=== PATIENT | male | born 1975 | race Caucasian/White ===

== ENCOUNTER 2025-09-25 20:07 | Emergency (ER) | payer BC, SELFPAY ==
[2025-09-25 20:09] VITALS: BP 145/90
[2025-09-25 20:44] VITALS: BP 142/90
[2025-09-25 20:45] VITALS: BMI 26.5
[2025-09-25 20:48] LABS: Hematocrit 40.5 % (39.0-52.0); Hemoglobin 13.7 g/dL (13.0-18.0); Mean Corp Hgb Conc. 33.8 g/dL (33.0-37.0); Mean Corpuscular Volume 83.3 fL (80.0-94.0); Nucleated Red Blood Cells % 0 % (-); Platelet Count 251 10^3/uL (130-400); Red Cell Dist. Width 12.9 % (11.5-14.5)
[2025-09-25 21:00] VITALS: BP 120/84
[2025-09-25 21:09] LABS: ALT (SGPT) 20 U/L (0-50); AST (SGOT) 20 U/L (17-59); Albumin 4.5 g/dl (3.5-5.0); Alkaline Phosphatase 52 U/L (38-126); Blood Urea Nitrogen 9 mg/dl (9-20); Calcium 9.0 mg/dl (8.4-10.2); Carbon Dioxide 27 mmol/L (22-30); Chloride 103 mmol/L (98-107); Estimated Creatinine Clearance 112 ml/min; Glucose 117 mg/dl (70-99); Potassium 4.1 mmol/L (3.5-5.1); Sodium 137 mmol/L (135-145); Total Protein 7.5 g/dl (6.3-8.2); eGFR > 60.00
[2025-09-25 21:13] LABS: Troponin I < 0.012 ng/ml
[2025-09-25 22:00] VITALS: BP 118/82
[2025-09-25 23:00] VITALS: BP 126/89
[2025-09-25] MEDS: TORADOL 15 MG IV (23:10)
[2025-09-25 23:39] LABS: D-Dimer 0.58 ug/mlFEU (0.00-0.50)
--- NOTE | 2025-09-25 23:57 | ED.GENMED ---
History of Present Illness
General
Chief Complaint: Chest Pain
Source: patient and family
Exam Limitations: none
Time Seen by Provider: 09/25/25 20:58
Nursing documentation reviewed up to this point in time: agreed with
History of Present Illness
History of Present Illness:
Patient presents ED secondary to sudden onset of bilateral ear ringing sensation, facial numbness sensation, bilateral arm numbness sensation, along with multiple vomiting episodes, while she was in the kitchen around 2:30 PM. Since then the
sensation as well as numbness sensation have resolved. However, she has had additional vomiting episodes. In addition, at the time when she was experiencing aforementioned symptoms, patient felt as though her speech was 'slowed' compared to her
usual speech. Denies difficulty with speech. Denies difficulty with swallowing. Denies weakness. Denies previous history of similar symptoms. Denies recent illness. Of note, patient states that she has not seen any family physician or any
doctors 'for a long time'.
Review of Systems
Review of Systems
Allergies reviewed?: Yes
All Other Systems: ROS reviewed and negative except as documented in HPI and ROS
Constitutional: Reports no symptoms
EENT: Reports other (ear ringing sensation)
Respiratory: Reports no symptoms
Cardiac: Reports no symptoms
ABD/GI: Reports nausea and vomiting
Musculoskeletal: Reports no symptoms
Skin: Reports no symptoms
Neurological: Reports numbness and other (slowed speech)
Phy Exam
Physical Exam
Physical Exam:
Physical Exam
General: no apparent distress, not acutely ill. afebrile
Head: nc/at. eomi
Neck: supple. normal range of motion. no jvd.
Heart: s1/s2 regular rate and rhythm. no murmur
Lungs: no acute respiratory distress. clear bilaterally. chest wall nontender to palpation
Abdomen: normal bowel sounds. not tender.
Neuro: alert and oriented x 3. no focal neurological deficits
Skin: no rash
Psychiatric: well kept. interactive and cooperative
Extremities: no edema. no calf tenderness.
Scores
Heart Score for Chest Pain Patients
STEMI patient?: No
History: Slightly or Non-Suspicious
ECG: Normal
Age: >45 - <65 years
Risk Factors: 1 or 2 Risk Factors
Troponin: </= Normal Limit
Heart Score for Chest Pain Patients: 2
Heart Score Risk: 2.5% MACE over next 6 weeks
Course
Orders/Labs/Results
Orders:
Orders
09/25/25 20:12
Electrocardiogram (*1) Urgent
Reason for Study: Chest Pain
EKG- Treatment ONCE
09/25/25 20:25
Complete Blood Count/With Diff Urgent
Comprehensive Metabolic Panel Urgent
Troponin I Urgent
09/25/25 23:01
Ketorolac [Toradol] 15 mg IV NOW STA
09/25/25 23:02
Electrocardiogram (*1) Urgent
Reason for Study: Chest Pain
EKG- Treatment ONCE
09/25/25 23:14
D-Dimer Urgent
Troponin I Urgent
09/26/25 00:05
CT Chest PE Study Urgent
Comment:
Reason For Exam: chest pain
Abnormal Lab Results
09/25/25 09/25/25
20:25 23:14
Absolute Monos (auto) 0.7 H 10^3/uL
(0.1-0.6)
D-Dimer 0.58 H ug/mlFEU
(0.00-0.50)
Glucose 117 H mg/dl
(70-99)
09/25/25 20:25
09/25/25 20:25
Vital Signs
Initial and Last Documented VS:
Initial Vital Signs
Temp Pulse Resp BP Pulse Ox
98.2 F 69 16 145/90 99
09/25/25 20:09 09/25/25 20:09 09/25/25 20:09 09/25/25 20:09 09/25/25 20:09
Last Documented Vital Signs
Temp Pulse Resp BP Pulse Ox
98.2 F 66 12 113/76 95
09/25/25 20:09 09/26/25 00:00 09/26/25 00:00 09/26/25 00:00 09/26/25 00:00
MDM/Problems Addressed
MDM/Problems Addressed:
Patient with an unremarkable workup in ED, including repeat EKG and troponin, although EKG does continue to show nonspecific flattening versus T wave inversion. Patient reports improved symptoms after administration of Toradol, raising possibility
of inflammatory response, i.e. musculoskeletal pain in etiology. However, in light of patient's family history of early heart disease, patient will be referred to cardiology for an outpatient consultation via chest pain hotline.
CT PE study ordered secondary to elevated D-dimer, along with ongoing symptoms. No acute pathology noted. Patient otherwise is afebrile, hemodynamically stable, appears comfortable, at time of discharge. Return precautions provided.
*Pulse Oximetry
SaO2: 95
Oxygen Mode of Delivery: Room air
Patient hypoxic: no
*EKG
Interpreted by ED Provider?: Yes
EKG Intrepretation Date: 09/26/25
Heart Rate: 67
Rate: normal
Rhythm: sinus
[place]: normal axis
Ischemia: T-wave inversion
*Critical Care Note
Total Time (30-74mins, 75-104mins- exclusive of procedures): Not Applicable
ED Attending Note
-
Portions of this chart may have been created with voice recognition software.� Occasional wrong word or��sound alike� substitutions may have occurred due to the inherent limitations of voice recognition software.
Discharge Plan
Departure
Patient Disposition: Home (Routine Discharge)
Date of Disposition: 09/26/25
Time of Disposition: 00:59
Patient with high blood pressure during this ER visit?: Yes
Condition: Good
Discharge Problem:
Chest pain
Instructions: Chest Pain CBC Follow Up
Prescriptions:
No Action
No Current Medications
0
Referrals:
Yovani Tse MD [Active, Cardiology]
NONE,* [Family Provider, Internal Medicine]
Activity Restrictions/Additional Instructions:
As discussed, please follow-up with your primary care physician and/or referred mortgage analyst for further evaluation and treatment. Please return to ED with worsening symptoms.
Interventions
Interventions:
*Risk Screen - Suicide Last Done: 09/25/25 20:09
*General Assessment Last Done: 09/25/25 20:46
*Neglect/Abuse Screening Last Done: 09/25/25 20:09
*ED COVID-19 Vaccine History Last Done: 09/25/25 20:46
*ED Influenza Vaccine History Last Done: 09/25/25 20:46
[facility] Fall Risk Assessment Tool Last Done: 09/25/25 20:45
ED- Cardiac Assessment Last Done: 09/25/25 20:47
Discharge Date and Time
Print Language: [email or web address]
[2025-09-25 23:59] LABS: Troponin I < 0.012 ng/ml
[2025-09-26] VITALS: BP 113/76
[2025-09-26 01:00] VITALS: BP 114/71
== END 2025-09-26 01:31 | disposition home or self-care (01) ==
LOC: EMR 20:07
PROVIDERS: Emergency Medicine; EMERGENCY PHYSICIAN Emergency Medicine
DX: R07.9 Chest pain, unspecified (principal); R03.0 Elevated blood-pressure reading, without diagnosis of hypertension; Z82.49 Family history of ischemic heart disease and other diseases of the circulatory system
CPT/HCPCS: 99284; 96374; 71275; 80053; 84484; 85025; 85379; 93005; Q9967

== ENCOUNTER → 2025-09-30 09:17 | Outpatient (REF) | payer BC, SELFPAY | LOC: HWRCS 09:17 | PROVIDERS: ATTENDING PHYSICIAN Internal Medicine; FAMILY PHYSICIAN Family Medicine | DX: R07.9 Chest pain, unspecified (principal); I31.39 Other pericardial effusion (noninflammatory); I30.9 Acute pericarditis, unspecified | CPT/HCPCS: 93306 ==